=== PATIENT | male | born 1990 | race Hispanic/Latino ===

== ENCOUNTER 2017-02-09 10:33 | Emergency (ER) | payer SELFPAY ==
[~2017-02-09] VITALS: Ht 160 cm; Wt 72.0 kg
[~2017-02-09 10:33] MED LIST: HYDROCO/APAP1 TA9 PO; ZOFRAN ODT4 MG PO
[2017-02-09 11:11] LABS: HEMATOCRIT 42.1 % (39.0-50.0); HEMOGLOBIN 14.8 g/dl (14.0-18.0); IMMATURE GRANULOCYTES 0.5 % (0.0-1.0); MEAN CELL VOLUME 80.2 fL CALC (80.0-100.0); MEAN CORPUSCULAR HGB 28.2 pG CALC (26.0-32.0); MEAN CORPUSCULAR HGB CONC 35.2 g/L CALC (32.0-36.0); NEUT# 9.3 thou/uL (1.82-7.42); RED BLOOD COUNT 5.25 mill/uL (4.70-6.10); RED CELL DISTRI WIDTH 13.9 % (11.5-15.5)
[2017-02-09 11:26] LABS: ALBUMIN 4.9 g/dL (3.2-5.0); ALKALINE PHOSPHATASE 125 u/l (38-126); AMYLASE 75 u/l (30-110); ANION GAP 21 (6-22 (CALC)); BILIRUBIN, TOTAL 0.8 mg/dL (0.0-1.4); BUN 9 mg/dL (9-20); BUN/CREATININE RATIO 14 (12-20 (CALC)); CALCIUM 9.3 mg/dL (8.4-10.2); CARBON DIOXIDE 20 mmol/l (22-30); CHLORIDE 98 mmol/l (95-108); CPK 444 u/l (52-200); CREATININE 0.7 mg/dL (0.7-1.3); ETHYL ALCOHOL 0 mg/dl (0-30); GFR > 60 ML/MIN (>=60 (CALC)); GFR FOR AFR.AMER. > 60 ML/MIN (>=60 (CALC)); GLUCOSE 136 mg/dL (75-110); LIPASE 36 u/l (23-300); POTASSIUM 3.5 mmol/l (3.5-5.1); SGOT/AST 59 u/l (17-59); SGPT/ALT 63 u/l (21-72); SODIUM 136 mmol/l (137-146); TOTAL PROTEIN 8.3 g/dL (6.3-8.2)
[2017-02-09 12:37] LABS: MYOGLOBIN 64 ng/mL (0 - 121)
[2017-02-09] MEDS ORDERED: LIBRIUM25 MG PO (15:21)
[2017-02-09] MEDS ORDERED: NEXIUM40 M1 PO (15:21)
[2017-02-09] MEDS ORDERED: ZOFRAN ODT4 MG PO (15:21)
[2017-02-09] MEDS ORDERED: TRAMADOL HYDROC50 MG PO (16:02)
[2017-02-09 16:10] LABS: URINE BILIRUBIN - DIPSTICK NEGATIVE (NEGATIVE); URINE BLOOD DIPSTICK NEGATIVE (NEGATIVE); URINE CLARITY CLEAR; URINE COLOR YELLOW; URINE GLUCOSE - DIPSTICK NEGATIVE (NEGATIVE); URINE KETONE 15 mg/dL (NEGATIVE); URINE LEUK ESTERASE NEGATIVE (NEGATIVE); URINE NITRITE - DIPSTICK NEGATIVE (Negative); URINE PROTEIN - DIPSTICK NEGATIVE (NEG-TRACE); URINE SPECIFIC GRAVITY <=1.005; URINE UROBILINOGEN - DIPSTICK 0.2 E.U./dL (0.2)
[2017-02-09 16:27] VITALS: BP 132/55
== END 2017-02-09 16:55 | disposition home or self-care (01) | DRG 918 ==
LOC: ED 10:33
PROVIDERS: Emergency Medicine
DX: T51.2X1A Toxic effect of 2-Propanol, accidental (unintentional), initial encounter (principal); R11.2 Nausea with vomiting, unspecified; R10.9 Unspecified abdominal pain; Y92.009 Unspecified place in unspecified non-institutional (private) residence as the place of occurrence of the external cause
CPT/HCPCS: J2060; S0164

== ENCOUNTER 2017-03-11 04:58 | Observation (INO) | payer SELFPAY ==
[~2017-03-11] VITALS: Ht 160 cm; Wt 63.0 kg
[2017-03-11] VITALS (7 sets, daily range): BP systolic 124–147; BP diastolic 70–91
[~2017-03-11 04:58] MED LIST changes: +LIBRIUM25 MG PO; +NEXIUM40 M1 PO; +TRAMADOL HYDROC50 MG PO
[2017-03-11 06:27] LABS: HEMATOCRIT 50.1 % (39.0-50.0); IMMATURE GRANULOCYTES 0.3 % (0.0-1.0); MEAN CELL VOLUME 82.3 fL CALC (80.0-100.0); MEAN CORPUSCULAR HGB 27.9 pG CALC (26.0-32.0); MEAN CORPUSCULAR HGB CONC 33.9 g/L CALC (32.0-36.0); NEUT# 4.04 thou/uL (1.82-7.42); RED BLOOD COUNT 6.09 mill/uL (4.70-6.10); RED CELL DISTRI WIDTH 13.2 % (11.5-15.5)
[2017-03-11 06:39] LABS: ALBUMIN 5.2 g/dL (3.2-5.0); ALKALINE PHOSPHATASE 121 u/l (38-126); AMYLASE 75 u/l (30-110); ANION GAP 27 (6-22 (CALC)); BILIRUBIN, TOTAL 0.8 mg/dL (0.0-1.4); BUN 16 mg/dL (9-20); BUN/CREATININE RATIO 16 (12-20 (CALC)); CALCIUM 9.3 mg/dL (8.4-10.2); CARBON DIOXIDE 22 mmol/l (22-30); CHLORIDE 101 mmol/l (95-108); GFR > 60 ML/MIN (>=60 (CALC)); GFR FOR AFR.AMER. > 60 ML/MIN (>=60 (CALC)); GLUCOSE 124 mg/dL (75-110); LIPASE 114 u/l (23-300); POTASSIUM 3.8 mmol/l (3.5-5.1); SGOT/AST 79 u/l (17-59); SGPT/ALT 61 u/l (21-72); SODIUM 146 mmol/l (137-146); TOTAL PROTEIN 8.9 g/dL (6.3-8.2)
[2017-03-11 10:30] LABS: URINE BILIRUBIN - DIPSTICK NEGATIVE (NEGATIVE); URINE BLOOD DIPSTICK TRACE-INTACT (NEGATIVE); URINE CLARITY CLEAR; URINE COLOR YELLOW; URINE GLUCOSE - DIPSTICK NEGATIVE (NEGATIVE); URINE KETONE NEGATIVE (NEGATIVE); URINE LEUK ESTERASE NEGATIVE (NEGATIVE); URINE NITRITE - DIPSTICK NEGATIVE (Negative); URINE PROTEIN - DIPSTICK NEGATIVE (NEG-TRACE); URINE SPECIFIC GRAVITY >=1.030; URINE UROBILINOGEN - DIPSTICK 0.2 E.U./dL (0.2)
[2017-03-11 10:34] LABS: BARBITURATES NEGATIVE (NEGATIVE); COCAINE POSITIVE (NEGATIVE); METHADONE NEGATIVE (NEGATIVE); OXCYCODONE NEGATIVE (NEGATIVE); TETRAHYDROCANNABIONOL NEGATIVE (NEGATIVE); TRICYLIC ANTIDEPRESSANTS NEGATIVE (NEGATIVE)
[2017-03-12 00:01] VITALS: BP 132/84
[2017-03-12 04:05] VITALS: BP 137/95
[2017-03-12 04:24] LABS: IMMATURE GRANULOCYTES 0.1 % (0.0-1.0); MEAN CELL VOLUME 84.2 fL CALC (80.0-100.0); MEAN CORPUSCULAR HGB 28.1 pG CALC (26.0-32.0); MEAN CORPUSCULAR HGB CONC 33.3 g/L CALC (32.0-36.0); NEUT# 3.76 thou/uL (1.82-7.42); RED BLOOD COUNT 4.63 mill/uL (4.70-6.10); RED CELL DISTRI WIDTH 13.1 % (11.5-15.5)
[2017-03-12 04:40] LABS: BUN 7 mg/dL (9-20); BUN/CREATININE RATIO 11 (12-20 (CALC)); CALCIUM 8.7 mg/dL (8.4-10.2); CARBON DIOXIDE 28 mmol/l (22-30); CHLORIDE 101 mmol/l (95-108); CREATININE 0.6 mg/dL (0.7-1.3); GFR > 60 ML/MIN (>=60 (CALC)); GFR FOR AFR.AMER. > 60 ML/MIN (>=60 (CALC)); GLUCOSE 92 mg/dL (75-110); POTASSIUM 3.7 mmol/l (3.5-5.1)
[2017-03-12 04:47] LABS: ANION GAP 11 (6-22 (CALC))
[2017-03-12 04:48] LABS: SODIUM 136 mmol/l (137-146)
[2017-03-12 06:05] VITALS: BP 128/74
[2017-03-12] MEDS ORDERED: PROTONIX40 MG PO (09:38)
[2017-03-12] MEDS ORDERED: ZOFRAN4 MG/TAB PO (09:38)
[2017-03-12] MEDS ORDERED: LIBRIUM25 M1 PO (09:38)
== END 2017-03-12 11:05 | disposition home or self-care (01) | DRG 378 ==
LOC: ED 04:58 → ED-I 05:35 → ED 05:35 → ED-I 06:30 → ED 10:47 → ED-I 10:47 → ICU 11:44
PROVIDERS: Emergency Medicine; Nurse Practitioner Family; ADMIT Internal Medicine; ATTEND Internal Medicine
DX: K29.21 Alcoholic gastritis with bleeding (principal); E87.2 Acidosis; F10.229 Alcohol dependence with intoxication, unspecified; Y90.7 Blood alcohol level of 200-239 mg/100 ml; F14.10 Cocaine abuse, uncomplicated
CPT/HCPCS: J2060; S0164

== ENCOUNTER 2017-05-15 09:06 | Observation (INO) | payer SELFPAY ==
[~2017-05-15] VITALS: Ht 160 cm; Wt 65.6 kg
[~2017-05-15 09:06] MED LIST changes: +LIBRIUM25 M1 PO; +PROTONIX40 MG PO; +ZOFRAN4 MG/TAB PO
[2017-05-15 10:32] LABS: HEMATOCRIT 46.8 % (39.0-50.0); HEMOGLOBIN 16.1 g/dl (14.0-18.0); IMMATURE GRANULOCYTES 0.6 % (0.0-1.0); MEAN CELL VOLUME 81.4 fL CALC (80.0-100.0); MEAN CORPUSCULAR HGB CONC 34.4 g/L CALC (32.0-36.0); NEUT# 2.42 thou/uL (1.82-7.42); RED BLOOD COUNT 5.75 mill/uL (4.70-6.10)
[2017-05-15 10:46] LABS: ALBUMIN 5.1 g/dL (3.2-5.0); ALKALINE PHOSPHATASE 118 u/l (38-126); ANION GAP 25 (6-22 (CALC)); BILIRUBIN, TOTAL 0.5 mg/dL (0.0-1.4); BUN 16 mg/dL (9-20); BUN/CREATININE RATIO 20 (12-20 (CALC)); CALCIUM 9.5 mg/dL (8.4-10.2); CARBON DIOXIDE 21 mmol/l (22-30); CHLORIDE 106 mmol/l (95-108); CREATININE 0.8 mg/dL (0.7-1.3); GFR > 60 ML/MIN (>=60 (CALC)); GFR FOR AFR.AMER. > 60 ML/MIN (>=60 (CALC)); GLUCOSE 100 mg/dL (75-110); LIPASE 24 u/l (23-300); POTASSIUM 4.1 mmol/l (3.5-5.1); SGOT/AST 37 u/l (17-59); SGPT/ALT 49 u/l (21-72); SODIUM 147 mmol/l (137-146); TOTAL PROTEIN 8.5 g/dL (6.3-8.2)
[2017-05-15 13:10] LABS: URINE BILIRUBIN - DIPSTICK NEGATIVE (NEGATIVE); URINE BLOOD DIPSTICK NEGATIVE (NEGATIVE); URINE CLARITY CLEAR; URINE COLOR YELLOW; URINE GLUCOSE - DIPSTICK NEGATIVE (NEGATIVE); URINE KETONE TRACE mg/dL (NEGATIVE); URINE LEUK ESTERASE NEGATIVE (NEGATIVE); URINE NITRITE - DIPSTICK NEGATIVE (Negative); URINE PROTEIN - DIPSTICK NEGATIVE (NEG-TRACE); URINE SPECIFIC GRAVITY 1.025; URINE UROBILINOGEN - DIPSTICK 0.2 E.U./dL (0.2)
[2017-05-15 13:28] LABS: BARBITURATES NEGATIVE (NEGATIVE); COCAINE NEGATIVE (NEGATIVE); METHADONE NEGATIVE (NEGATIVE); OXCYCODONE NEGATIVE (NEGATIVE); TETRAHYDROCANNABIONOL NEGATIVE (NEGATIVE); TRICYLIC ANTIDEPRESSANTS NEGATIVE (NEGATIVE)
[2017-05-15 17:36] VITALS: BP 141/91
[2017-05-15 18:05] VITALS: BP 130/81
[2017-05-16 04:46] VITALS: BP 127/72
[2017-05-16 07:45] VITALS: BP 126/69
[2017-05-16 10:53] LABS: ANION GAP 18 (6-22 (CALC)); BUN 13 mg/dL (9-20); BUN/CREATININE RATIO 17 (12-20 (CALC)); CALCIUM 9.2 mg/dL (8.4-10.2); CARBON DIOXIDE 22 mmol/l (22-30); CHLORIDE 103 mmol/l (95-108); CREATININE 0.8 mg/dL (0.7-1.3); GFR > 60 ML/MIN (>=60 (CALC)); GFR FOR AFR.AMER. > 60 ML/MIN (>=60 (CALC)); GLUCOSE 69 mg/dL (75-110); MAGNESIUM 1.8 mg/dL (1.6-2.3); POTASSIUM 4.3 mmol/l (3.5-5.1); SODIUM 138 mmol/l (137-146)
[2017-05-16] MEDS ORDERED: CARAFATE1 GM PO (11:18)
[2017-05-16] MEDS ORDERED: LIBRIUM25 M1 PO (11:18)
[2017-05-16] MEDS ORDERED: PROTONIX40 M2 PO (11:18)
== END 2017-05-16 13:30 | disposition home or self-care (01) | DRG 392 ==
LOC: ED 09:06 → ED-I 15:54 → ED 16:08 → MS2 16:09
PROVIDERS: Emergency Medicine; Nurse Practitioner Family; ADMIT Internal Medicine; ATTEND Internal Medicine
DX: K29.20 Alcoholic gastritis without bleeding (principal); F10.229 Alcohol dependence with intoxication, unspecified; F10.20 Alcohol dependence, uncomplicated; Y90.7 Blood alcohol level of 200-239 mg/100 ml
CPT/HCPCS: G0378; S0164

== ENCOUNTER 2017-05-30 08:17 | Emergency (ER) | payer SELFPAY ==
[~2017-05-30] VITALS: Ht 160 cm; Wt 65.0 kg
[~2017-05-30 08:17] MED LIST changes: +CARAFATE1 GM PO; +PROTONIX40 M2 PO
[2017-05-30 08:56] LABS: HEMATOCRIT 44.5 % (39.0-50.0); HEMOGLOBIN 15.3 g/dl (14.0-18.0); IMMATURE GRANULOCYTES 0.5 % (0.0-1.0); MEAN CELL VOLUME 82.1 fL CALC (80.0-100.0); MEAN CORPUSCULAR HGB 28.2 pG CALC (26.0-32.0); MEAN CORPUSCULAR HGB CONC 34.4 g/L CALC (32.0-36.0); NEUT# 3.24 thou/uL (1.82-7.42); RED BLOOD COUNT 5.42 mill/uL (4.70-6.10); RED CELL DISTRI WIDTH 13.2 % (11.5-15.5)
[2017-05-30 09:00] LABS: ALKALINE PHOSPHATASE 112 u/l (38-126); ANION GAP 21 (6-22 (CALC)); BILIRUBIN, TOTAL 0.9 mg/dL (0.0-1.4); BUN 12 mg/dL (9-20); BUN/CREATININE RATIO 15 (12-20 (CALC)); CALCIUM 9.4 mg/dL (8.4-10.2); CARBON DIOXIDE 27 mmol/l (22-30); CHLORIDE 102 mmol/l (95-108); CREATININE 0.8 mg/dL (0.7-1.3); ETHYL ALCOHOL 173 mg/dl (0-30); GFR > 60 ML/MIN (>=60 (CALC)); GFR FOR AFR.AMER. > 60 ML/MIN (>=60 (CALC)); GLUCOSE 123 mg/dL (75-110); LIPASE 88 u/l (23-300); POTASSIUM 4.4 mmol/l (3.5-5.1); SGOT/AST 65 u/l (17-59); SGPT/ALT 66 u/l (21-72); SODIUM 144 mmol/l (137-146); TOTAL PROTEIN 8.1 g/dL (6.3-8.2)
[2017-05-30 11:28] LABS: URINE BILIRUBIN - DIPSTICK NEGATIVE (NEGATIVE); URINE BLOOD DIPSTICK NEGATIVE (NEGATIVE); URINE COLOR YELLOW; URINE GLUCOSE - DIPSTICK NEGATIVE (NEGATIVE); URINE KETONE NEGATIVE (NEGATIVE); URINE LEUK ESTERASE NEGATIVE (NEGATIVE); URINE NITRITE - DIPSTICK NEGATIVE (Negative); URINE PH 7.5 (4.5-8.0); URINE PROTEIN - DIPSTICK NEGATIVE (NEG-TRACE); URINE SPECIFIC GRAVITY 1.015; URINE UROBILINOGEN - DIPSTICK 0.2 E.U./dL (0.2)
[2017-05-30 11:31] LABS: URINE CLARITY CLEAR
[2017-05-30 11:32] LABS: BARBITURATES NEGATIVE (NEGATIVE); COCAINE NEGATIVE (NEGATIVE); METHADONE NEGATIVE (NEGATIVE); OXCYCODONE NEGATIVE (NEGATIVE); TETRAHYDROCANNABIONOL NEGATIVE (NEGATIVE); TRICYLIC ANTIDEPRESSANTS NEGATIVE (NEGATIVE)
[2017-05-30 16:40] VITALS: BP 141/67
== END 2017-05-30 16:40 | disposition short-term general hospital (02) | DRG 392 ==
LOC: ED 08:17 → ED-I 15:39 → ED 16:40
PROVIDERS: Emergency Medicine
DX: R10.13 Epigastric pain (principal); E87.2 Acidosis; R10.12 Left upper quadrant pain; K29.70 Gastritis, unspecified, without bleeding; F10.20 Alcohol dependence, uncomplicated; Y90.6 Blood alcohol level of 120-199 mg/100 ml; R11.2 Nausea with vomiting, unspecified
CPT/HCPCS: G0328; S0164

== ENCOUNTER 2017-08-03 10:06 | Emergency (ER) | payer SELFPAY ==
[~2017-08-03] VITALS: Ht 160 cm; Wt 63.0 kg
[2017-08-03] MEDS ORDERED: NEXIUM40 M1 PO (10:41)
[2017-08-03] MEDS ORDERED: ZOFRAN ODT4 MG PO (10:41)
[2017-08-03] MEDS ORDERED: LIBRIUM25 MG PO (10:41)
[2017-08-03 10:57] LABS: HEMATOCRIT 45.2 % (39.0-50.0); HEMOGLOBIN 15.2 g/dl (14.0-18.0); IMMATURE GRANULOCYTES 0.4 % (0.0-1.0); MEAN CELL VOLUME 80.6 fL CALC (80.0-100.0); MEAN CORPUSCULAR HGB 27.1 pG CALC (26.0-32.0); MEAN CORPUSCULAR HGB CONC 33.6 g/L CALC (32.0-36.0); NEUT# 2.23 thou/uL (1.82-7.42); RED BLOOD COUNT 5.61 mill/uL (4.70-6.10); RED CELL DISTRI WIDTH 12.6 % (11.5-15.5)
[2017-08-03 11:08] LABS: ALKALINE PHOSPHATASE 116 u/l (38-126); AMYLASE 39 u/l (30-110); ANION GAP 25 (6-22 (CALC)); BILIRUBIN, TOTAL 0.6 mg/dL (0.0-1.4); BUN 16 mg/dL (9-20); BUN/CREATININE RATIO 19 (12-20 (CALC)); CALCIUM 9.9 mg/dL (8.4-10.2); CARBON DIOXIDE 27 mmol/l (22-30); CHLORIDE 97 mmol/l (95-108); CREATININE 0.8 mg/dL (0.7-1.3); GFR > 60 ML/MIN (>=60 (CALC)); GFR FOR AFR.AMER. > 60 ML/MIN (>=60 (CALC)); GLUCOSE 123 mg/dL (75-110); LIPASE 17 u/l (23-300); POTASSIUM 3.7 mmol/l (3.5-5.1); SGOT/AST 47 u/l (17-59); SGPT/ALT 52 u/l (21-72); SODIUM 145 mmol/l (137-146); TOTAL PROTEIN 7.8 g/dL (6.3-8.2)
[2017-08-03 12:29] VITALS: BP 124/75
== END 2017-08-03 12:48 | disposition home or self-care (01) | DRG 392 ==
LOC: ED 10:06
PROVIDERS: Emergency Medicine
DX: K29.20 Alcoholic gastritis without bleeding (principal); R10.12 Left upper quadrant pain; R11.10 Vomiting, unspecified; R19.7 Diarrhea, unspecified
CPT/HCPCS: S0164

== ENCOUNTER 2017-08-29 16:53 | Emergency (ER) | payer SELFPAY ==
[~2017-08-29] VITALS: Ht 160 cm; Wt 70.0 kg
[2017-08-29 18:07] LABS: HEMATOCRIT 44.9 % (39.0-50.0); HEMOGLOBIN 14.9 g/dl (14.0-18.0); IMMATURE GRANULOCYTES 0.1 % (0.0-1.0); MEAN CELL VOLUME 80.9 fL CALC (80.0-100.0); MEAN CORPUSCULAR HGB 26.8 pG CALC (26.0-32.0); MEAN CORPUSCULAR HGB CONC 33.2 g/L CALC (32.0-36.0); NEUT# 4.73 thou/uL (1.82-7.42); RED BLOOD COUNT 5.55 mill/uL (4.70-6.10); RED CELL DISTRI WIDTH 13.2 % (11.5-15.5)
[2017-08-29 18:11] LABS: ALBUMIN 4.7 g/dL (3.2-5.0); ALKALINE PHOSPHATASE 118 u/l (38-126); ANION GAP 26 (6-22 (CALC)); BILIRUBIN, TOTAL 0.5 mg/dL (0.0-1.4); BUN 13 mg/dL (9-20); BUN/CREATININE RATIO 18 (12-20 (CALC)); CARBON DIOXIDE 20 mmol/l (22-30); CHLORIDE 97 mmol/l (95-108); CREATININE 0.7 mg/dL (0.7-1.3); GFR > 60 ML/MIN (>=60 (CALC)); GFR FOR AFR.AMER. > 60 ML/MIN (>=60 (CALC)); LIPASE 21 u/l (23-300); POTASSIUM 4.1 mmol/l (3.5-5.1); SGOT/AST 43 u/l (17-59); SGPT/ALT 38 u/l (21-72); SODIUM 139 mmol/l (137-146); TOTAL PROTEIN 7.5 g/dL (6.3-8.2)
[2017-08-29 19:16] LABS: URINE BILIRUBIN - DIPSTICK NEGATIVE (NEGATIVE); URINE BLOOD DIPSTICK NEGATIVE (NEGATIVE); URINE COLOR YELLOW; URINE GLUCOSE - DIPSTICK NEGATIVE (NEGATIVE); URINE KETONE NEGATIVE (NEGATIVE); URINE LEUK ESTERASE NEGATIVE (NEGATIVE); URINE NITRITE - DIPSTICK NEGATIVE (Negative); URINE PROTEIN - DIPSTICK TRACE mg/dL (NEG-TRACE); URINE SPECIFIC GRAVITY >=1.030; URINE UROBILINOGEN - DIPSTICK 0.2 E.U./dL (0.2)
[2017-08-29 19:22] LABS: URINE CLARITY CLEAR
[2017-08-29 19:23] LABS: BARBITURATES NEGATIVE (NEGATIVE); COCAINE NEGATIVE (NEGATIVE); METHADONE NEGATIVE (NEGATIVE); OXCYCODONE NEGATIVE (NEGATIVE); TETRAHYDROCANNABIONOL NEGATIVE (NEGATIVE); TRICYLIC ANTIDEPRESSANTS NEGATIVE (NEGATIVE)
[2017-08-29] MEDS ORDERED: PROTONIX40 MG PO (20:12)
[2017-08-29] MEDS ORDERED: AUGMENTIN875TAB PO (20:39)
[2017-08-29] MEDS ORDERED: ZOFRAN4 M1 PO (20:39)
[2017-08-29 21:17] VITALS: BP 125/76
== END 2017-08-29 21:25 | disposition home or self-care (01) | DRG 392 ==
LOC: ED 16:53
PROVIDERS: Emergency Medicine
DX: R10.32 Left lower quadrant pain (principal); F10.10 Alcohol abuse, uncomplicated
CPT/HCPCS: J2060; Q9967; S0164

== ENCOUNTER 2017-08-30 05:25 | Emergency (ER) | payer SELFPAY ==
[~2017-08-30] VITALS: Ht 160 cm; Wt 68.6 kg
[~2017-08-30 05:25] MED LIST changes: +AUGMENTIN875TAB PO; +ZOFRAN4 M1 PO
[2017-08-30 07:47] LABS: HEMATOCRIT 39.3 % (39.0-50.0); HEMOGLOBIN 13.3 g/dl (14.0-18.0); IMMATURE GRANULOCYTES 0.2 % (0.0-1.0); MEAN CELL VOLUME 80.9 fL CALC (80.0-100.0); MEAN CORPUSCULAR HGB 27.4 pG CALC (26.0-32.0); MEAN CORPUSCULAR HGB CONC 33.8 g/L CALC (32.0-36.0); NEUT# 2.4 thou/uL (1.82-7.42); RED BLOOD COUNT 4.86 mill/uL (4.70-6.10); RED CELL DISTRI WIDTH 13.3 % (11.5-15.5)
[2017-08-30 08:01] LABS: ALBUMIN 4.1 g/dL (3.2-5.0); ALKALINE PHOSPHATASE 119 u/l (38-126); ANION GAP 16 (6-22 (CALC)); BILIRUBIN, TOTAL 1.4 mg/dL (0.0-1.4); BUN 9 mg/dL (9-20); BUN/CREATININE RATIO 14 (12-20 (CALC)); CALCIUM 9.4 mg/dL (8.4-10.2); CARBON DIOXIDE 22 mmol/l (22-30); CHLORIDE 103 mmol/l (95-108); CREATININE 0.7 mg/dL (0.7-1.3); GFR > 60 ML/MIN (>=60 (CALC)); GFR FOR AFR.AMER. > 60 ML/MIN (>=60 (CALC)); GLUCOSE 98 mg/dL (75-110); LIPASE 25 u/l (23-300); POTASSIUM 3.8 mmol/l (3.5-5.1); SGOT/AST 61 u/l (17-59); SGPT/ALT 43 u/l (21-72); SODIUM 137 mmol/l (137-146); TOTAL PROTEIN 6.8 g/dL (6.3-8.2)
[2017-08-30 09:00] VITALS: BP 135/87
== END 2017-08-30 09:56 | disposition home or self-care (01) | DRG 392 ==
LOC: ED 05:25
PROVIDERS: Family Medicine
DX: R10.84 Generalized abdominal pain (principal); F10.10 Alcohol abuse, uncomplicated
CPT/HCPCS: J2060

== ENCOUNTER 2017-11-04 16:52 | Inpatient (IN) | payer SELFPAY ==
[~2017-11-04] VITALS: Ht 165.1 cm; Wt 63.6 kg
[2017-11-04 18:44] LABS: HEMOGLOBIN 14.5 g/dl (14.0-18.0); IMMATURE GRANULOCYTES 0.5 % (0.0-1.0); MEAN CELL VOLUME 81.9 fL CALC (80.0-100.0); MEAN CORPUSCULAR HGB 27.6 pG CALC (26.0-32.0); MEAN CORPUSCULAR HGB CONC 33.7 g/L CALC (32.0-36.0); NEUT# 6.43 thou/uL (1.82-7.42); RED BLOOD COUNT 5.25 mill/uL (4.70-6.10); RED CELL DISTRI WIDTH 13.7 % (11.5-15.5)
[2017-11-04 18:54] LABS: ALKALINE PHOSPHATASE 144 u/l (38-126); AMYLASE 71 u/l (30-110); ANION GAP 28 (6-22 (CALC)); BILIRUBIN, TOTAL 1.2 mg/dL (0.0-1.4); BUN 19 mg/dL (9-20); BUN/CREATININE RATIO 26 (12-20 (CALC)); CARBON DIOXIDE 23 mmol/l (22-30); CHLORIDE 91 mmol/l (95-108); CREATININE 0.7 mg/dL (0.7-1.3); GFR > 60 ML/MIN (>=60 (CALC)); GFR FOR AFR.AMER. > 60 ML/MIN (>=60 (CALC)); LIPASE 37 u/l (23-300); POTASSIUM 4.3 mmol/l (3.5-5.1); SGPT/ALT 80 u/l (21-72); SODIUM 138 mmol/l (137-146)
[2017-11-04 19:01] LABS: SGOT/AST 108 u/l (17-59); TOTAL PROTEIN 8.7 g/dL (6.3-8.2)
[2017-11-04 20:26] LABS: URINE BLOOD DIPSTICK NEGATIVE (NEGATIVE); URINE COLOR YELLOW; URINE GLUCOSE - DIPSTICK NEGATIVE (NEGATIVE); URINE KETONE >=80 mg/dL (NEGATIVE); URINE LEUK ESTERASE NEGATIVE (NEGATIVE); URINE NITRITE - DIPSTICK NEGATIVE (Negative); URINE PROTEIN - DIPSTICK 30 mg/dL (NEG-TRACE); URINE SPECIFIC GRAVITY 1.015
[2017-11-04 20:28] LABS: COCAINE NEGATIVE (NEGATIVE); METHADONE NEGATIVE (NEGATIVE); TETRAHYDROCANNABIONOL NEGATIVE (NEGATIVE)
[2017-11-04 20:29] LABS: BARBITURATES NEGATIVE (NEGATIVE); OXCYCODONE NEGATIVE (NEGATIVE); TRICYLIC ANTIDEPRESSANTS NEGATIVE (NEGATIVE)
[2017-11-04 20:31] LABS: URINE BILIRUBIN - DIPSTICK NEGATIVE (NEGATIVE); URINE CLARITY CLEAR
[2017-11-04 20:42] LABS: URINE RBC 0-2 RBC/hpf (0-5); URINE WBC 0-2 WBC/hpf (0-5)
[2017-11-05] VITALS (11 sets, daily range): BP systolic 128–141; BP diastolic 78–93
== END 2017-11-05 12:30 | disposition designated cancer center or children's hospital (05) | DRG 897 ==
LOC: ED 16:52 → ED-I 23:00 → ED 23:18 → ICU 23:19
PROVIDERS: Emergency Medicine; ADMIT Internal Medicine; ATTEND Internal Medicine
DX: F10.251 Alcohol dependence with alcohol-induced psychotic disorder with hallucinations (principal); K70.10 Alcoholic hepatitis without ascites; K29.20 Alcoholic gastritis without bleeding
CPT/HCPCS: J2060; Q9967; S0164

== ENCOUNTER 2017-12-01 16:17 | Inpatient (IN) | payer SELFPAY ==
[~2017-12-01] VITALS: Ht 165.1 cm; Wt 65.0 kg
--- NOTE | 2017-12-01 16:17 | NUR ---
PT TAKEN TO ER ROOM 10 BY EMS. LABS DRAWN FROM EMS IV. ON CARDIAC/BP/O2 MONITOR. EKG COMPLETED. @BEDSIDE. PT CHANGED INTO GOWN. GIVEN URINAL FOR UA SAMPLE.
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
[2017-12-01 16:34] LABS: HEMATOCRIT 41.6 % (39.0-50.0); HEMOGLOBIN 13.9 g/dl (14.0-18.0); IMMATURE GRANULOCYTES 0.4 % (0.0-1.0); MEAN CELL VOLUME 82.4 fL CALC (80.0-100.0); MEAN CORPUSCULAR HGB 27.5 pG CALC (26.0-32.0); MEAN CORPUSCULAR HGB CONC 33.4 g/L CALC (32.0-36.0); NEUT# 3.3 thou/uL (1.82-7.42); RED BLOOD COUNT 5.05 mill/uL (4.70-6.10)
[2017-12-01 16:45] LABS: BARBITURATES NEGATIVE (NEGATIVE); COCAINE NEGATIVE (NEGATIVE); METHADONE NEGATIVE (NEGATIVE); OXCYCODONE NEGATIVE (NEGATIVE); TETRAHYDROCANNABIONOL NEGATIVE (NEGATIVE); TRICYLIC ANTIDEPRESSANTS NEGATIVE (NEGATIVE)
--- NOTE | 2017-12-01 16:52 | NUR ---
BLOOD HEMOLIZED. LAB HERE TO COLLECT ANOTHER SAMPLE .
[2017-12-01 17:14] LABS: ALBUMIN 4.3 g/dL (3.2-5.0); ALKALINE PHOSPHATASE 115 u/l (38-126); ANION GAP 21 (6-22 (CALC)); BILIRUBIN, TOTAL 0.5 mg/dL (0.0-1.4); BUN 14 mg/dL (9-20); BUN/CREATININE RATIO 24 (12-20 (CALC)); CARBON DIOXIDE 23 mmol/l (22-30); CREATININE 0.6 mg/dL (0.7-1.3); GFR > 60 ML/MIN (>=60 (CALC)); GFR FOR AFR.AMER. > 60 ML/MIN (>=60 (CALC)); LIPASE 771 u/l (23-300); MAGNESIUM 1.9 mg/dL (1.6-2.3); POTASSIUM 3.5 mmol/l (3.5-5.1); SGOT/AST 93 u/l (17-59); SGPT/ALT 69 u/l (21-72); SODIUM 143 mmol/l (137-146); TOTAL PROTEIN 7.5 g/dL (6.3-8.2)
[2017-12-01 17:15] LABS: CHLORIDE 103 mmol/l (95-108)
[2017-12-01] MEDS ORDERED: TYLENOL325 MG PO (17:36)
[2017-12-01] MEDS ORDERED: ZOFRAN ODT4 MG PO (17:36)
--- NOTE | 2017-12-01 17:52 | NUR ---
PT LAYING IN BED. NO COMPLAINTS. NO NEEDS. WILL CONTINUE TO MONITOR
--- NOTE | 2017-12-01 18:12 | NUR ---
RECVING VALENTINA WCB
--- NOTE | 2017-12-01 18:28 | NUR ---
Admission Note Report Given to: jose Transported by: Wheelchair x Stretcher Transported with: x Nurse Transporter x Patent IV O2 x Heel Cover Softener
--- NOTE | 2017-12-01 18:40 | NUR ---
PT TRANSFERED TO [facility] BY STRETCHER IN STABLE CONDITION WITH TELE.
[2017-12-01 18:45] VITALS: BP 125/85
--- NOTE | 2017-12-01 19:55 | NUR ---
PT WAS RECEIVED FROM E.R PRIOR TO START OF THIS SHIFT. REPORT RECEIVED FROM DAYSNEFT NURSE. PT RESTING IN BED. RESP EVEN AND UNLABORED. PT DOES SPEAL SOME PORTUGUESE AND ANSWERS QUESTIONS APPROPRAITELY. ALERT AND ORIENTED. LUNGS CLEAR BILAT. IV SITE PATENT NO REDNESS OR SWELLING AT SITE. IVF BANANA BAG INFUSING AT 125CC/HR. ABD SOFT AND DISTENDED WITH BOWEL SOUNDS PRESENT. PT DOES HAVE TENDERNESS NOTED ON UPPER LEFT QUAD ON PALPATION. NO LOWER EXT EDEMA NOTED. PEDAL PULSES PALPATED BILAT. PT ORIENTED TO ROOM AND CALL BLANCAS. URINAL AT BESIDE FOR PT TO USE. PT INSTRUCTED NOT TO ATTEMPT TO GET OOB ON HIS OWN AND TO RING FOR ASSISTANCE. PT STATES HE UNDERSTANDS. TELE INTACT READING ST. PT IS AFEBRILE. B/P 133/88. O2 SAT 97% ON R/A. NO S/S OF ETOH WITHDRAWL NOTED AT THIS TIME. PT IS CALM, PLEASANT AND COOPERATIVE. WILL CONTINUE TO CLOSELY MONITOR. RT HAND IS SLIGHTLY EDEMATOUS AND ELEVATED ON A PILLOW. STRONG RADIAL PULSE PALPATED WITH GOOD CAPILLARY REFILL. PT DENIES ANY DISCOMFORT AT THIS TIME. CALL BLANCAS WITHIN REACH.
--- NOTE | 2017-12-01 20:59 | NUR ---
PT AWAKE RESTING IN BED. PT IS REQUESTING PAIN MED FOR ABD DISCOMFORT. PT DENIES ANY NAUSEA. MEDICATED WITH LORTAB 5/325MG ONE TAB P.O AND LIBRIUM 25MG P.O TO CONTINUE TO KEEP PT CALM. NO S/S OF ETOH WITHDRAWL NOTED. FREQUENT ROUNDS MADE. CALL BLANCAS WITHIN REACH.
[2017-12-02 00:10] VITALS: BP 123/79
--- NOTE | 2017-12-02 00:10 | NUR ---
PT RESTING IN BED WITH EYES CLOSED. RESP EVEN AND UNLABORED. NO DISTRESS NOTED. IV SITE PATENT. TELE INTACT. WILL CONTINUE TO CLOSELY MONITOR. FREQUENT ROUNDS MADE. CALL BLANCAS WITHIN REACH.
--- NOTE | 2017-12-02 02:30 | NUR ---
RESTING IN BED WITH EYES CLOSED. RESP EVEN AND UNLABORED. FREQUENT ROUNDS MADE.CALL BLANCAS WITHIN REACH.
[2017-12-02 04:10] VITALS: BP 129/82
--- NOTE | 2017-12-02 04:12 | NUR ---
PT AWAKE REQUESTING PAIN MEDICINE FOR ABD DISCOMFORT. PT DENIES ANY NAUSEA. NO S/S OF WITHDRAWL NOTED. ALERT AND ORIENTED. PLEASANT AND COOPERATIVE. MEDICATED WITH LOTAB 5/325MG ONE TAB P.O FOR ABD DISCOMFORT AND LIBRIUM 25MG P.O . HEPL[place] PATENT. TELE INTACT. FREQUENT ROUNDS MADE. CALL BLANCAS WITHIN REACH.
[2017-12-02 05:36] LABS: HEMATOCRIT 39.6 % (39.0-50.0); HEMOGLOBIN 13.2 g/dl (14.0-18.0); IMMATURE GRANULOCYTES 0.3 % (0.0-1.0); MEAN CELL VOLUME 83.4 fL CALC (80.0-100.0); MEAN CORPUSCULAR HGB 27.8 pG CALC (26.0-32.0); MEAN CORPUSCULAR HGB CONC 33.3 g/L CALC (32.0-36.0); NEUT# 2.84 thou/uL (1.82-7.42); RED BLOOD COUNT 4.75 mill/uL (4.70-6.10); RED CELL DISTRI WIDTH 13.9 % (11.5-15.5)
[2017-12-02 06:00] LABS: ANION GAP 18 (6-22 (CALC)); BUN 13 mg/dL (9-20); BUN/CREATININE RATIO 23 (12-20 (CALC)); CARBON DIOXIDE 26 mmol/l (22-30); CHLORIDE 99 mmol/l (95-108); CREATININE 0.5 mg/dL (0.7-1.3); GFR > 60 ML/MIN (>=60 (CALC)); GFR FOR AFR.AMER. > 60 ML/MIN (>=60 (CALC)); MAGNESIUM 1.5 mg/dL (1.6-2.3); POTASSIUM 3.1 mmol/l (3.5-5.1); SODIUM 140 mmol/l (137-146)
--- NOTE | 2017-12-02 07:00 | NUR ---
REPORT RECEIVED BY VALENTINA ARIZA. PT IS RESTING IN BED WITH NO S/S OF DISTRESS NOTED. PT DENIES NEEDS AT THIS TIME CALL LIGHT IN REACH.
[2017-12-02 07:29] VITALS: BP 138/86
--- NOTE | 2017-12-02 08:20 | NUR ---
MEDICATED PT WITH LORTAB FOR PAIN SEE EMAR. ASSESSMENT DONE RESPS EVEN AND UNLABOREDN. TELE IN PLACE. # 18 RAC THAT APPEARS HEALTHY. PT STATED THAT RIGHT HAND IS LESS SWOLLEN AND ELEVATED IN PILLOW. PT STATED THAT HE KEEPS HAVING NIGHTMARES AND FEELS WEAK. SAFETY PRECAUTIONS REINOFRCED AND CALL LIGHT IN REACH.
--- NOTE | 2017-12-02 10:21 | NUR ---
LIBRIUM GIVEN PER ORDER. PT IS A&O X3 , BUT STATED THAT SOMEONE IS CHASING HIM. PT STATED THAT HE KNOW HE IS IN THE HOSPITAL. PT DENIES ANY OTHER NEEDS AT THIS TIME. CALL LIGHT IN REACH.
[2017-12-02 11:15] VITALS: BP 138/85
--- NOTE | 2017-12-02 12:44 | NUR ---
MEIDCATED PT WITH LORTAB FOR PAIN SEE EMAR. RESPS EVEN AND UNLABORED AND TELE IN PLACE. PT DENIES ANY OTHER NEEDS AT THIS TIME. CALL LIGHT IN REACH.
[2017-12-02 15:20] VITALS: BP 143/88
--- NOTE | 2017-12-02 16:01 | NUR ---
PT IS RESTING IN BED . PT STATED THAT HE FEELS LESS SHAKY BUT STILL WEAK. PT DENIES NEEDS AT THIS TIME. CALL LIGHT IN REACH.
[2017-12-02 19:00] VITALS: BP 143/96
--- NOTE | 2017-12-02 20:00 | NUR ---
BEDSIDE REPORT RECEIVED FROM VALENTINA CANALES. PT RESTING IN BED SEMI FOWLERS WATCHING TV. ALERT AND ORIENTED; LAO SPEAKING. PT C/O ABDOMINAL PAIN 10. RESPIRATIONS EVEN AND UNLABORED ON ROOM AIR. ALSO C/O BEING ANXIOUS AND REQUESTS ANXIETY MEDICATION. PLAN OF CARE DISCUSSED. PT ENCOURAGED TO VERBALIZE CONCERNS. STATES UNDERSTANDING. SAFETY MEASURES IN PLACE. CALL LIGHT WITHIN REACH.
--- NOTE | 2017-12-02 22:47 | NUR ---
PT HAD LARGE EMESIS; ZOFRAN GIVEN AND PAIN MEDICATION. REQUESTING SOMETHING TO HELP HIM SLEEP, ATIVAN GIVEN LESS THAN 2 HOURS PRIOR. WILL REASSESS.
[2017-12-03] VITALS (8 sets, daily range): BP systolic 125–144; BP diastolic 72–96
--- NOTE | 2017-12-03 01:19 | NUR ---
ZOFRAN WAS EFFECTIVE FOR NAUSEA AND EMESIS. LIBRIUM ALSO GIVEN AT MIDNIGHT FOR C/O ANXIETY AND SLEEPLESSNESS. SOON AFTER LIBRIUM WAS GIVEN PT STATES THAT HE FEELS IF SOMETHING IS PUSHING HIM INTO THE MATRESS AND HE CANNOT MOVE, CAN BARELY SPEAK, AND IS HEARING NOISES COMPARED TO STATIC ON A TV. NEURO EXAM WNL FOR PT. ATIVAN ADMINISTERED. WILL CONTINUE TO MONITOR.
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
[2017-12-03 05:46] LABS: ANION GAP 13 (6-22 (CALC)); BUN 7 mg/dL (9-20); BUN/CREATININE RATIO 15 (12-20 (CALC)); CARBON DIOXIDE 26 mmol/l (22-30); CHLORIDE 98 mmol/l (95-108); CREATININE 0.5 mg/dL (0.7-1.3); GFR > 60 ML/MIN (>=60 (CALC)); GFR FOR AFR.AMER. > 60 ML/MIN (>=60 (CALC)); MAGNESIUM 1.8 mg/dL (1.6-2.3); SODIUM 134 mmol/l (137-146)
[2017-12-03 05:50] LABS: HEMATOCRIT 36.6 % (39.0-50.0); HEMOGLOBIN 12.2 g/dl (14.0-18.0); IMMATURE GRANULOCYTES 0.4 % (0.0-1.0); MEAN CORPUSCULAR HGB 27.7 pG CALC (26.0-32.0); MEAN CORPUSCULAR HGB CONC 33.3 g/L CALC (32.0-36.0); NEUT# 3.56 thou/uL (1.82-7.42); RED BLOOD COUNT 4.41 mill/uL (4.70-6.10); RED CELL DISTRI WIDTH 13.3 % (11.5-15.5)
[2017-12-03 05:53] LABS: LIPASE 1864 u/l (23-300)
--- NOTE | 2017-12-03 08:20 | NUR ---
PT IS RELAXING IN BED WITH NO DISTRESS NOTED. IV SITE IS FREE FROM REDNESS OR EDEMA. HR IS REG, PULSES ARE STRONG X4, ABD IS SOFT WITH ACTIVE BS, TELE MONITOR IN PLACE. CONTINUE TO OSBERVE AND MONITOR.
--- NOTE | 2017-12-03 12:30 | NUR ---
PT IS RELAXING IN BED WITH MO DISTRESS NOTED. IV SITE IS FREE FROM REDNESS OR EDMEA. CONTINUE TO OBSERVE AND MONITOR.
[2017-12-03 13:50] LABS: ALBUMIN 3.8 g/dL (3.2-5.0); ALKALINE PHOSPHATASE 102 u/l (38-126); BILIRUBIN, TOTAL 0.7 mg/dL (0.0-1.4); BUN 5 mg/dL (9-20); BUN/CREATININE RATIO 11 (12-20 (CALC)); CARBON DIOXIDE 25 mmol/l (22-30); CHLORIDE 99 mmol/l (95-108); CREATININE 0.5 mg/dL (0.7-1.3); GFR > 60 ML/MIN (>=60 (CALC)); GFR FOR AFR.AMER. > 60 ML/MIN (>=60 (CALC)); SGOT/AST 79 u/l (17-59); SGPT/ALT 65 u/l (21-72); SODIUM 134 mmol/l (137-146); TOTAL PROTEIN 6.6 g/dL (6.3-8.2)
[2017-12-03 13:51] LABS: ANION GAP 14 (6-22 (CALC)); POTASSIUM 4.3 mmol/l (3.5-5.1)
--- NOTE | 2017-12-03 15:59 | NUR ---
PT BEING TRANSPORTED TO HAVE CT SCAN COMPLETED
--- NOTE | 2017-12-03 16:30 | NUR ---
PT RETURNED FROM HAVING CT SCAN COMPLETED: IV SITE IS FREE FROM REDNESS OR EDMEA. CONTINUE TO OBSERVE AND MONITOR.
--- NOTE | 2017-12-03 20:00 | NUR ---
BEDSIDE REPORT RECEIVED FROM MALACHI AHN. PT RESTING IN BED SUPINE WATCHING TV; ALERT AND ORIENTED. C/O 10 LUQ PAIN. RESPIRATIONS EVEN AND UNLABORED ON ROOM AIR. REMAINS ON SEIZURE PRECAUTIONS AND NEURO CHECKS WHICH HAVE BEEN WNL FOR PT. PLAN OF CARE REIVEWED. PT ENCOURAGED TO VERALIZE CONCERNS. REQUEST A SHOWER AT THIS TIME. SAFETY MEASURES IN PLACE. CALL LIGHT WITHIN REACH.
--- NOTE | 2017-12-03 23:02 | NUR ---
PAIN AND ANXIETY MEDICATION GIVEN AT HS PER REQUEST. PT ALSO REQUESTED TO CONTACT NIVIA ZEPEDA WHO HE STATES HAS HIS PHONE, WALLET, AND HOUSE KEYS. PT SPOKE TO NIVIA VIA TELEPHONE AND WAS SATISFIED. PT DID VERBALIZE THAT HE IS WORRIED HE WILL HAVE DELUSIONS AGAIN TONIGHT; TLC GIVEN ALONG WITH ATIVAN. IV FLUIDS INFUSING WITHOUT DIFFICUTLY; IV SITE APPEARS HEALTHY. SHOWER WAS GIVEN EARLIER THIS SHIFT. TELE ON. SAFETY MEASURES IN PLACE. CALL LIGHT WITHIN REACH.
[2017-12-04 04:05] VITALS: BP 120/84
--- NOTE | 2017-12-04 04:24 | NUR ---
PT SLEEP AT THIS TIME WITH NO SIGNS OF DISTRESS; HE HAS SLEPT MOST OF THE NIGHT. RESPIRATIONS EVEN AND UNLABORED ON ROOM AIR. NO ACUTE CHANGES IN CONDITION THROUGHOUT THE NIGHT. SAFETY MEASURES IN PLACE. CALL LIGHT WITHIN REACH.
--- NOTE | 2017-12-04 07:00 | NUR ---
SHIFT CHANGE REPORT FROM HARRY RUBY AWAKE ALERT AND ORIENTED RESTING IN BED, IVF INFUSING, NO C/O DISCOMFORT AT THIS TIME, CALL BLANCAS IN REACH.
[2017-12-04 08:00] LABS: HEMATOCRIT 36.5 % (39.0-50.0); HEMOGLOBIN 12.2 g/dl (14.0-18.0); MEAN CELL VOLUME 82.8 fL CALC (80.0-100.0); MEAN CORPUSCULAR HGB 27.7 pG CALC (26.0-32.0); MEAN CORPUSCULAR HGB CONC 33.4 g/L CALC (32.0-36.0); RED BLOOD COUNT 4.41 mill/uL (4.70-6.10); RED CELL DISTRI WIDTH 13.2 % (11.5-15.5)
[2017-12-04 08:05] LABS: ALBUMIN 3.6 g/dL (3.2-5.0); ALKALINE PHOSPHATASE 91 u/l (38-126); ANION GAP 14 (6-22 (CALC)); BILIRUBIN, TOTAL 0.4 mg/dL (0.0-1.4); BUN 4 mg/dL (9-20); BUN/CREATININE RATIO 10 (12-20 (CALC)); CARBON DIOXIDE 25 mmol/l (22-30); CHLORIDE 102 mmol/l (95-108); CREATININE 0.4 mg/dL (0.7-1.3); GFR > 60 ML/MIN (>=60 (CALC)); GFR FOR AFR.AMER. > 60 ML/MIN (>=60 (CALC)); LIPASE 760 u/l (23-300); MAGNESIUM 1.8 mg/dL (1.6-2.3); POTASSIUM 3.5 mmol/l (3.5-5.1); SGOT/AST 87 u/l (17-59); SGPT/ALT 71 u/l (21-72); SODIUM 136 mmol/l (137-146); TOTAL PROTEIN 6.5 g/dL (6.3-8.2)
[2017-12-04 08:59] VITALS: BP 145/101
[2017-12-04 11:56] VITALS: BP 130/95
--- NOTE | 2017-12-04 12:00 | NUR ---
PT C/O LEFT ABD PAIN STATED IT STARTED AFTER MEAL THIS AM, CONCERN ADDRESSED, WILL CONTINUE TO MONITOR AND ADDRESS NEEDS.
[2017-12-04 15:18] VITALS: BP 136/95
--- NOTE | 2017-12-04 16:00 | NUR ---
RESTING IN BED, ALL NEEDS ADDRESSED, CALL BLANCAS IN REACH.
[2017-12-04 19:00] VITALS: BP 139/99
--- NOTE | 2017-12-04 20:00 | NUR ---
BEDSIDE REPORT RECEIVED FROM VALENTINA SIM. PT RESTING IN BED; ALERT AND OREINTED. C/O 9/10 PAIN TO LEFT SIDE/ABDOMEN. LORTAB GIVEN. RESPIRATIONS EVEN AND UNLABORED ON ROOM AIR. PLAN OF CARE REVIEWED. PT STATES THAT HE THINKS HE WILL GO HOME TOMORROW. ENCOURAGED TO VERBALIZE CONCERNS. DOES NOT APPEAR ANXIOUS AT THIS TIME. SAFETY MEASURES IN PLACE. CALL LIGHT WITHIN REACH.
[2017-12-04 23:00] VITALS: BP 141/100
--- NOTE | 2017-12-05 00:13 | NUR ---
PT ASLEEP AT THIS TIME WITH NO SIGNS OF DISTRESS. RESPIRATIONS EVEN AND UNLABORED ON ROOM AIR. ATIVAN GIVEN AT HS PER REQUEST FOR SLEEPLESSNESS AND MILD ANXIETY. PT INDEPENDENT IN ROOM; USES CALL LIGHT PRN FOR ASSISTANCE. SAFETY MEASURES IN PLACE. CALL LIGHT WITHIN REACH.
--- NOTE | 2017-12-05 04:14 | NUR ---
PT ASLEEP AT THIS TIME WITH NO SIGNS OF DISRESS. NO ACUTE CHANGES IN CONDITION THROUGHOUT THE NIGHT. SAFETY MEASURES IN PLACE. CALL LIGHT WITHIN REACH.
[2017-12-05 04:33] VITALS: BP 143/100
--- NOTE | 2017-12-05 07:25 | NUR ---
REPORT RECEIVED FROM VALENTINA RUBY;PT RESTING IN SEMI FOWLERS POSITION;INTRODUCED SELF TO PT AND POC DISCUSSED;RESPIRATIONS EVEN AND UNLABORED ON RA;SEIZURE PRECAUTIONS IN PLACE;PT DENIES ANY CURRENT PAIN OR NEEDS;ENCOURAGED TO EXPRESS NEEDS AND CONCERNS;CALL LIGHT IN REACH;WILL CONTINUE TO MONITOR
[2017-12-05 08:25] VITALS: BP 142/106
--- NOTE | 2017-12-05 08:30 | NUR ---
PT RESTING IN SEMI FOWLERS POSITION;VS OBTAINED AND ASSESSMENT COMPLETED;RESPIRATIONS EVEN AND UNLABORED ON RA,CLEAR LUNG SOUNDS;ABDOMEN SOFT ON PALPATION AND ACTIVE IN ALL 4 QUADRANTS,TENDERNESS NOTED TO RUQ;STRONG PEDAL PULSES;SKIN INTACT;PT REPORTS MINIMAL DISCOMFORTS 2/10 ON THE PAIN SCALE TO ABDOMEN;#18G TO RAC INFUSING NS @ 200ML/HR,SITE APPEARS HEALTHY;TELE MONITOR IN PLACE;SEIZURE PRECAUTIONS IN PLACE;PT DENIES ANY CURRENT NEEDS;ENCOURAGED TO CALL FOR ASSISTANCE IF NEEDED;CALL LIGHT IN REACH;WILL CONTINUE TO MONITOR
[2017-12-05 10:09] LABS: ANION GAP 15 (6-22 (CALC)); BUN 4 mg/dL (9-20); BUN/CREATININE RATIO 9 (12-20 (CALC)); CARBON DIOXIDE 26 mmol/l (22-30); CHLORIDE 101 mmol/l (95-108); CREATININE 0.5 mg/dL (0.7-1.3); GFR > 60 ML/MIN (>=60 (CALC)); GFR FOR AFR.AMER. > 60 ML/MIN (>=60 (CALC)); LIPASE 463 u/l (23-300); POTASSIUM 4.1 mmol/l (3.5-5.1); SODIUM 139 mmol/l (137-146)
[2017-12-05 11:05] VITALS: BP 150/106
--- NOTE | 2017-12-05 12:50 | NUR ---
PT COMPLAINS OF ABDOMINAL PAIN RATING 8/10 ON THE PAIN SCALE AND NAUSEA;PT MEDICATED WITH ZOFRAN 4MG IVP AND LORTAB 5/325MG PO;IV SITE PATENT INFUSING NS @ 200ML/HR;TELE MONITOR IN PLACE;600CC OF CLEAR/YELLOW UEIN EMPTIED FROM URINAL;CALL LIGHT IN REACH;WILL CONTINUE TO MONITOR
--- NOTE | 2017-12-05 13:50 | NUR ---
PT VOMITING 300CC OF UNDIGESTED FOOD AND COMPLANING OF SEVERE 10/10 ABDOMINAL PAIN; NOTIFIED
--- NOTE | 2017-12-05 14:03 | NUR ---
PT MEDICATED WITH PRN MORPHINE 2MG IVP FOR ABDOMINAL PAIN RATING 10/10 ON THE PAIN SCALE;WILL CONTINUE TO MONITOR FOR EFFECTIVENESS
--- NOTE | 2017-12-05 17:10 | NUR ---
PT MEDICATED WITH PRN ZOFRAN 4MG IVP PER REQUEST,EMESIS BAG PROVIDED;WILL CONTINUE TO MONITOR
[2017-12-05 17:53] VITALS: BP 143/100
--- NOTE | 2017-12-05 19:45 | NUR ---
PATIENT RESTING IN BED-AWAKE ALERT AND ORIENTEDX3. C/O LUQ ABD PAIN-8/10 ON PAIN SCALE-MEDICATED WITH LORTAB 5/325MG PO. MEDICATED WITH LIBRIUM 25MG FOR ANXIETY. IVF SITE TO RIGHT AC INTACT WITH NS PATENT AND INFUSING AT 200CC/HR. SITE APPEARS HEALTHY AT THIS TIME. TELE MONITORING DEVICE IN PLACE. SAFETY PRECAUTIONS REINFORCED. SEIZURE PRECAUTIONS IN PLACE WITH SIDERAILS PADDED. CALL LIGHT IN REACH. WILL CONT TO MONITOR.
[2017-12-05 20:10] VITALS: BP 113/64
[2017-12-05 23:45] VITALS: BP 143/69
--- NOTE | 2017-12-06 | NUR ---
PATIENT RESTING IN BED-APPEARS SLEEPING WITH EYES CLOSED. RESP ARE EVEN AND UNLABORED. IVF PATENT AND INFUSING VIA RIGHTAC AT 200CC/HR. VPOIDING IN URINAL CLEAR Y ELLOW URINE. SEIZURE PRECAUTIONS IN PLACE WITH PADDED SIDERAILS. NO SEIZURE ACTIVITY NOTED. CALL LIGHT IN REACH. WILL CONT TO MONITOR.
--- NOTE | 2017-12-06 03:00 | NUR ---
PATIENT RESTING IN BED-REQUESTING SOMETHING TO SLEEP-PATIENT MEDICATED WITH ATIVAN 1MG IVP ORDERED. CALL LIGHT IN REACH. WILL CONT TO MONITOR.
[2017-12-06 04:55] VITALS: BP 132/92
[2017-12-06 06:16] LABS: HEMATOCRIT 36.9 % (39.0-50.0); HEMOGLOBIN 12.5 g/dl (14.0-18.0); MEAN CELL VOLUME 82.9 fL CALC (80.0-100.0); MEAN CORPUSCULAR HGB 28.1 pG CALC (26.0-32.0); MEAN CORPUSCULAR HGB CONC 33.9 g/L CALC (32.0-36.0); RED BLOOD COUNT 4.45 mill/uL (4.70-6.10); RED CELL DISTRI WIDTH 13.5 % (11.5-15.5)
[2017-12-06 06:28] LABS: AMYLASE 61 u/l (30-110); ANION GAP 14 (6-22 (CALC)); BUN 4 mg/dL (9-20); BUN/CREATININE RATIO 9 (12-20 (CALC)); CARBON DIOXIDE 26 mmol/l (22-30); CHLORIDE 102 mmol/l (95-108); CREATININE 0.5 mg/dL (0.7-1.3); GFR > 60 ML/MIN (>=60 (CALC)); GFR FOR AFR.AMER. > 60 ML/MIN (>=60 (CALC)); LIPASE 249 u/l (23-300); MAGNESIUM 1.6 mg/dL (1.6-2.3); POTASSIUM 3.6 mmol/l (3.5-5.1); SODIUM 138 mmol/l (137-146)
--- NOTE | 2017-12-06 07:00 | NUR ---
RECEIVED BEDSIDE REPORT FROM MATEO MONTGOMERY. RESTING IN SUPINE POSITION WITH EYES CLOSED, AWAKENS EASILY. RESPS EVEN AND UNLABORED ON ROOM AIR, TELE MONITOR IN PLACE. #18 RAC INFUSING WITHOUT DIFFICULTY, SITE APPEARS HEALTHY. DENIES PAIN OR DISCOMFORT. PLAN OF CARE DISCUSSED. SAFETY PRECAUTIONS REINFORCED. BED IN LOWEST POSITION WITH WHEELS LOCKED. CALL LIGHT WITHIN REACH. ENCOURAGED PT TO CALL FOR ANY NEEDS.
[2017-12-06 07:32] VITALS: BP 130/91
[2017-12-06] MEDS ORDERED: SUCRALFATE1 GM/10 ML PO (10:16)
[2017-12-06] MEDS ORDERED: LIBRIUM25 M1 PO (10:16)
[2017-12-06] MEDS ORDERED: PROTONIX40 M2 PO (10:17)
--- NOTE | 2017-12-06 11:00 | NUR ---
DR PEREZ AT BEDSIDE, NEW ORDERS RECEIVED.
[2017-12-06 12:30] VITALS: BP 134/84
--- NOTE | 2017-12-06 12:38 | NUR ---
IV site discontinued, cath intact. No edema , no redness, voices no discomfort.
--- NOTE | 2017-12-06 12:55 | NUR ---
Discharge instructions given. Patient verbalizes understanding of same. Discharged in stable condition via Wheelchair to Home with spouse. All belongings sent with pt.
== END 2017-12-06 12:56 | disposition home or self-care (01) | DRG 439 ==
LOC: ED 16:17 → ED-I 17:25 → ED 18:01 → MS2 18:02
PROVIDERS: Family Medicine; Nurse Practitioner Family; Surgery; ADMIT Internal Medicine; ATTEND Internal Medicine
DX: K85.20 Alcohol induced acute pancreatitis without necrosis or infection (principal); F10.231 Alcohol dependence with withdrawal delirium; F10.251 Alcohol dependence with alcohol-induced psychotic disorder with hallucinations; K86.0 Alcohol-induced chronic pancreatitis; K29.20 Alcoholic gastritis without bleeding; E87.6 Hypokalemia; E83.42 Hypomagnesemia; E86.0 Dehydration; F14.10 Cocaine abuse, uncomplicated
CPT/HCPCS: J2060; Q9967; S0164

== ENCOUNTER 2018-01-06 07:16 | Inpatient (IN) | payer SELFPAY ==
[~2018-01-06] VITALS: Ht 165.1 cm; Wt 63.0 kg
[~2018-01-06 07:16] MED LIST changes: +SUCRALFATE1 GM/10 ML PO; +TYLENOL325 MG PO
[2018-01-06 07:59] LABS: BILIRUBIN, TOTAL 0.6 mg/dL (0.0-1.4); BUN 13 mg/dL (9-20); BUN/CREATININE RATIO 15 (12-20 (CALC)); CHLORIDE 105 mmol/l (95-108); CREATININE 0.9 mg/dL (0.7-1.3); GFR > 60 ML/MIN (>=60 (CALC)); GFR FOR AFR.AMER. > 60 ML/MIN (>=60 (CALC)); LIPASE 61 u/l (23-300); SGPT/ALT 206 u/l (21-72); SODIUM 143 mmol/l (137-146)
[2018-01-06 08:11] LABS: MYOGLOBIN 81 ng/mL (0 - 121)
[2018-01-06 08:15] LABS: ALBUMIN 5.1 g/dL (3.2-5.0); ALKALINE PHOSPHATASE 168 u/l (38-126); ANION GAP 37 (6-22 (CALC)); CARBON DIOXIDE 6 mmol/l (22-30); POTASSIUM 4.8 mmol/l (3.5-5.1); SGOT/AST 242 u/l (17-59); TOTAL PROTEIN 8.7 g/dL (6.3-8.2)
[2018-01-06 08:23] LABS: IMMATURE GRANULOCYTES 1.2 % (0.0-1.0); MEAN CELL VOLUME 87.2 fL CALC (80.0-100.0); MEAN CORPUSCULAR HGB 27.9 pG CALC (26.0-32.0); MEAN CORPUSCULAR HGB CONC 32.1 g/L CALC (32.0-36.0); NEUT# 7.01 thou/uL (1.82-7.42); RED BLOOD COUNT 5.37 mill/uL (4.70-6.10); RED CELL DISTRI WIDTH 14.1 % (11.5-15.5)
[2018-01-06 08:24] LABS: HEMATOCRIT 46.8 % (39.0-50.0)
[2018-01-06 14:13] VITALS: BP 143/90
[2018-01-06 15:24] VITALS: BP 149/94
[2018-01-06 19:00] VITALS: BP 143/89
[2018-01-06 22:14] LABS: BUN 9 mg/dL (9-20); BUN/CREATININE RATIO 14 (12-20 (CALC)); CHLORIDE 105 mmol/l (95-108); CREATININE 0.6 mg/dL (0.7-1.3); GFR > 60 ML/MIN (>=60 (CALC)); GFR FOR AFR.AMER. > 60 ML/MIN (>=60 (CALC))
[2018-01-06 22:16] LABS: ANION GAP 16 (6-22 (CALC)); POTASSIUM 3.3 mmol/l (3.5-5.1); SODIUM 133 mmol/l (137-146)
[2018-01-06 22:17] LABS: CARBON DIOXIDE 15 mmol/l (22-30)
[2018-01-07] VITALS (7 sets, daily range): BP systolic 128–147; BP diastolic 75–88
[2018-01-07 05:08] LABS: MEAN CELL VOLUME 84.3 fL CALC (80.0-100.0); MEAN CORPUSCULAR HGB 28.3 pG CALC (26.0-32.0); MEAN CORPUSCULAR HGB CONC 33.5 g/L CALC (32.0-36.0); RED BLOOD COUNT 4.21 mill/uL (4.70-6.10); RED CELL DISTRI WIDTH 14.1 % (11.5-15.5)
[2018-01-07 05:12] LABS: HEMATOCRIT 35.5 % (39.0-50.0); HEMOGLOBIN 11.9 g/dl (14.0-18.0)
[2018-01-07 05:20] LABS: ALKALINE PHOSPHATASE 102 u/l (38-126); AMYLASE 34 u/l (30-110); BILIRUBIN, TOTAL 1.2 mg/dL (0.0-1.4); BUN 7 mg/dL (9-20); BUN/CREATININE RATIO 13 (12-20 (CALC)); CHLORIDE 104 mmol/l (95-108); CREATININE 0.5 mg/dL (0.7-1.3); GFR > 60 ML/MIN (>=60 (CALC)); GFR FOR AFR.AMER. > 60 ML/MIN (>=60 (CALC)); LIPASE 87 u/l (23-300); POTASSIUM 3.5 mmol/l (3.5-5.1); SGOT/AST 130 u/l (17-59); SGPT/ALT 122 u/l (21-72); SODIUM 135 mmol/l (137-146)
[2018-01-07 05:25] LABS: ALBUMIN 3.5 g/dL (3.2-5.0); ANION GAP 15 (6-22 (CALC)); CARBON DIOXIDE 20 mmol/l (22-30)
[2018-01-08 03:45] VITALS: BP 118/73
[2018-01-08 05:34] LABS: BUN 3 mg/dL (9-20); BUN/CREATININE RATIO 7 (12-20 (CALC)); CHLORIDE 96 mmol/l (95-108); CREATININE 0.4 mg/dL (0.7-1.3); GFR > 60 ML/MIN (>=60 (CALC)); GFR FOR AFR.AMER. > 60 ML/MIN (>=60 (CALC)); HEMATOCRIT 35.4 % (39.0-50.0); HEMOGLOBIN 11.9 g/dl (14.0-18.0); IMMATURE GRANULOCYTES 0.3 % (0.0-1.0); MAGNESIUM 1.7 mg/dL (1.6-2.3); MEAN CELL VOLUME 81.8 fL CALC (80.0-100.0); MEAN CORPUSCULAR HGB 27.5 pG CALC (26.0-32.0); MEAN CORPUSCULAR HGB CONC 33.6 g/L CALC (32.0-36.0); NEUT# 1.96 thou/uL (1.82-7.42); RED BLOOD COUNT 4.33 mill/uL (4.70-6.10); RED CELL DISTRI WIDTH 13.4 % (11.5-15.5); SODIUM 133 mmol/l (137-146)
[2018-01-08 05:41] LABS: ANION GAP 8 (6-22 (CALC))
[2018-01-08 05:42] LABS: CARBON DIOXIDE 32 mmol/l (22-30); POTASSIUM 2.6 mmol/l (3.5-5.1)
[2018-01-08 07:39] VITALS: BP 141/96
[2018-01-08 11:12] VITALS: BP 131/87
[2018-01-08 15:40] VITALS: BP 132/87
[2018-01-08 19:00] VITALS: BP 135/86
[2018-01-08 23:56] VITALS: BP 129/90
[2018-01-09 05:07] VITALS: BP 120/80
[2018-01-09 07:35] VITALS: BP 130/89
[2018-01-09 07:45] LABS: ANION GAP 6 (6-22 (CALC)); BUN 4 mg/dL (9-20); BUN/CREATININE RATIO 11 (12-20 (CALC)); CARBON DIOXIDE 30 mmol/l (22-30); CHLORIDE 103 mmol/l (95-108); CREATININE 0.4 mg/dL (0.7-1.3); GFR > 60 ML/MIN (>=60 (CALC)); GFR FOR AFR.AMER. > 60 ML/MIN (>=60 (CALC)); LIPASE 27 u/l (23-300); MAGNESIUM 1.7 mg/dL (1.6-2.3); POTASSIUM 3.2 mmol/l (3.5-5.1); SODIUM 136 mmol/l (137-146)
[2018-01-09 10:49] VITALS: BP 124/81
[2018-01-09] MEDS ORDERED: CELEXA20 MG PO (12:37)
[2018-01-09 14:59] VITALS: BP 135/89
== END 2018-01-09 15:53 | disposition home or self-care (01) | DRG 641 ==
LOC: ED 07:16 → ED-I 11:10 → ED 11:23 → MS2 11:24
PROVIDERS: Emergency Medicine; Nurse Practitioner Family; ADMIT Internal Medicine; ATTEND Internal Medicine
DX: E87.2 Acidosis (principal); K86.0 Alcohol-induced chronic pancreatitis; F10.251 Alcohol dependence with alcohol-induced psychotic disorder with hallucinations; F10.239 Alcohol dependence with withdrawal, unspecified; F10.229 Alcohol dependence with intoxication, unspecified; E87.1 Hypo-osmolality and hyponatremia; E86.0 Dehydration; E87.6 Hypokalemia; K29.20 Alcoholic gastritis without bleeding; F32.9 Major depressive disorder, single episode, unspecified; E16.2 Hypoglycemia, unspecified
CPT/HCPCS: J2060; S0164

== ENCOUNTER 2018-09-22 05:55 | Inpatient (IN) | payer SELFPAY ==
[2018-09-22] VITALS (7 sets, daily range): BP systolic 111–121; BP diastolic 64–75
[~2018-09-22] VITALS: Ht 160 cm; Wt 66.0 kg
[~2018-09-22 05:55] MED LIST changes: +CELEXA20 MG PO
--- NOTE | 2018-09-22 06:45 | NUR ---
SITTER AT BEDSIDE. VOMITED. PT ALERT. ADMITS TO DRINKING A BOTTLE OF PERFUME AIRCRAFT ENGINE SPECIALIST.
[2018-09-22 06:47] LABS: HEMATOCRIT 40.4 % (39.0-50.0); HEMOGLOBIN 13.4 g/dl (14.0-18.0); IMMATURE GRANULOCYTES 0.3 % (0.0-5.0); MEAN CELL VOLUME 79.7 fL CALC (80.0-100.0); MEAN CORPUSCULAR HGB 26.4 pG CALC (26.0-32.0); MEAN CORPUSCULAR HGB CONC 33.2 g/L CALC (32.0-36.0); NEUT# 6.81 thou/uL (1.82-7.42); RED BLOOD COUNT 5.07 mill/uL (4.70-6.10)
--- NOTE | 2018-09-22 07:00 | NUR ---
REPORT FROM VALENTINA GEORGE. PT REPORTS LUQ ABD PAIN WITH NAUSEA. SITTER AT BEDSIDE.
[2018-09-22 07:07] LABS: ALKALINE PHOSPHATASE 121 u/l (38-126); AMYLASE 70 u/l (30-110); ANION GAP 23 (6-22 (CALC)); BILIRUBIN, TOTAL 0.9 mg/dL (0.0-1.4); BUN 13 mg/dL (9-20); BUN/CREATININE RATIO 19 (12-20 (CALC)); CARBON DIOXIDE 23 mmol/l (22-30); CHLORIDE 97 mmol/l (95-108); CREATININE 0.7 mg/dL (0.7-1.3); GFR > 60 ML/MIN (>=60 (CALC)); GFR FOR AFR.AMER. > 60 ML/MIN (>=60 (CALC)); LIPASE 27 u/l (23-300); MAGNESIUM 1.7 mg/dL (1.6-2.3); POTASSIUM 3.6 mmol/l (3.5-5.1); SGOT/AST 125 u/l (17-59); SODIUM 139 mmol/l (137-146)
[2018-09-22 07:08] LABS: ALBUMIN 4.9 g/dL (3.2-5.0); ETHYL ALCOHOL 0 mg/dl (0-30)
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
--- NOTE | 2018-09-22 08:00 | NUR ---
PT PROVIDED WITH URINAL TO OBTAIN URINE SAMPLE. PT RESTING COMFORTABLY IN STRETCHER IN NAD. SITTER REMAINS AT BEDSIDE.
--- NOTE | 2018-09-22 08:12 | NUR ---
AT BEDSIDE. PT REPORTS CONTINUED NAUSEA, HE ALSO STATES THAT HE DRANK A BOTTLE OF PERFUME LAST NIGHT AT 1999.
--- NOTE | 2018-09-22 08:18 | NUR ---
ON PHONE WITH POISON CONTROL.
[2018-09-22 08:27] LABS: URINE BILIRUBIN - DIPSTICK NEGATIVE (NEGATIVE); URINE BLOOD DIPSTICK NEGATIVE (NEGATIVE); URINE COLOR YELLOW; URINE GLUCOSE - DIPSTICK NEGATIVE (NEGATIVE); URINE KETONE >=80 mg/dL (NEGATIVE); URINE LEUK ESTERASE NEGATIVE (NEGATIVE); URINE NITRITE - DIPSTICK NEGATIVE (Negative); URINE PH 6.5 (4.5-8.0); URINE PROTEIN - DIPSTICK TRACE mg/dL (NEG-TRACE); URINE SPECIFIC GRAVITY 1.015
[2018-09-22 08:41] LABS: BARBITURATES NEGATIVE (NEGATIVE); COCAINE NEGATIVE (NEGATIVE); METHADONE NEGATIVE (NEGATIVE); OXCYCODONE NEGATIVE (NEGATIVE); TETRAHYDROCANNABIONOL NEGATIVE (NEGATIVE); TRICYLIC ANTIDEPRESSANTS NEGATIVE (NEGATIVE)
--- NOTE | 2018-09-22 09:19 | NUR ---
PT MEDICATED FOR CONTINUED NAUSEA. IV FLUIDS INFUSING WITH NO DIFFICULTY. NO REDNESS OR EDEMA NOTED. PT AWARE OF PLAN FOR ADMISSION.
--- NOTE | 2018-09-22 10:15 | NUR ---
PT RESTING IN STRETCHER WITH EYES CLOSED AND APPEARS TO BE SLEEPING. PT AWAKENS TO VERBAL STIMULI. IV FLUIDS INFUSING WITH NO DIFFICULTY. PT DENIES ANY NAUSEA AT THIS TIME. CALL BLANCAS WITHIN REACH, SITTER AT BEDSIDE.
[2018-09-22 10:31] LABS: ALKALINE PHOSPHATASE 80 u/l (38-126); ANION GAP 15 (6-22 (CALC)); BILIRUBIN, TOTAL 0.6 mg/dL (0.0-1.4); BUN 10 mg/dL (9-20); BUN/CREATININE RATIO 17 (12-20 (CALC)); CARBON DIOXIDE 23 mmol/l (22-30); CHLORIDE 105 mmol/l (95-108); CREATININE 0.6 mg/dL (0.7-1.3); GFR > 60 ML/MIN (>=60 (CALC)); GFR FOR AFR.AMER. > 60 ML/MIN (>=60 (CALC)); SGOT/AST 92 u/l (17-59); SODIUM 139 mmol/l (137-146); TOTAL PROTEIN 6.4 g/dL (6.3-8.2)
[2018-09-22 10:32] LABS: ALBUMIN 3.7 g/dL (3.2-5.0)
--- NOTE | 2018-09-22 10:49 | NUR ---
SITTER REMAINS AT BEDSIDE. PT RESTING COMFORTABLY IN STRETCHER AND DENIES ANY NEEDS AT THIS TIME. CALL BLANCAS WITHIN REACH.
--- NOTE | 2018-09-22 12:18 | NUR ---
PT REMAINS IN STRETCHER WITH HOB ELEVATED. PT APPEARS TO BE SLEEPING AND AWAKENS TO TACTILE STIMULI. VSS. WILL CONTINUE TO MONITOR.
--- NOTE | 2018-09-22 12:30 | NUR ---
bedresting. no vomiting at this time
--- NOTE | 2018-09-22 13:06 | NUR ---
PT AWAKENS TO VERBAL STIMULI AND DENIES ANY PAIN OR NAUSEA AT THIS TIME. SITTER REMAINS AT BEDSIDE. PT AWARE OF CONTINUED WAIT TIME FOR ROOM ASSIGNMENT.
--- NOTE | 2018-09-22 13:30 | NUR ---
bedresting with sitter at bedside. remains very quiet. n/c or distress noted
--- NOTE | 2018-09-22 14:06 | NUR ---
ICU NURSE KATERIN WILL CALL FOR REPORT WHEN ROOM IS CLEAN.
--- NOTE | 2018-09-22 14:16 | NUR ---
bedresting. appears to be sleeping.
--- NOTE | 2018-09-22 16:35 | NUR ---
REPORT CALLED TO VALENTINA CONKLIN
--- NOTE | 2018-09-22 16:40 | NUR ---
TO ICU VIA STRETCHER
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
--- NOTE | 2018-09-22 18:15 | NUR ---
OOB TO BSC WITH SITTER ASSIST, TOLERATES ACTIVITY WELL, FAMILY MMEBER IN TO SEE PT FOR FEW MINUTES EARLIER, ALL BELONGINGS OUT OF REACH OF PATIENT, SITTER REMAINS AT BEDSIDE
--- NOTE | 2018-09-22 20:00 | NUR ---
awake. no acute distress. electronic device monitor shows sinus rhythm. #20 rfa rl infusing @ 100cchr. remains npo. voids per urinal. fall precautions & suicide precautions cont. sitter @ bedside.
--- NOTE | 2018-09-22 22:00 | NUR ---
awake. no distress. dental insurance biller shows sinus rhythm. sitter @ bedside.
[2018-09-23] VITALS (12 sets, daily range): BP systolic 106–142; BP diastolic 58–95
--- NOTE | 2018-09-23 00:01 | NUR ---
eyes closed. no distress. sitter @ bedside.
--- NOTE | 2018-09-23 02:00 | NUR ---
resting quietly. resps even & unlabored. no apparent distress.
--- NOTE | 2018-09-23 04:00 | NUR ---
eyes closed. no distress. air sampling and monitoring shows sinus rhythm.
[2018-09-23 05:28] LABS: HEMATOCRIT 37.3 % (39.0-50.0); HEMOGLOBIN 12.1 g/dl (14.0-18.0); IMMATURE GRANULOCYTES 0.3 % (0.0-5.0); MEAN CELL VOLUME 82.3 fL CALC (80.0-100.0); MEAN CORPUSCULAR HGB 26.7 pG CALC (26.0-32.0); MEAN CORPUSCULAR HGB CONC 32.4 g/L CALC (32.0-36.0); NEUT# 2.62 thou/uL (1.82-7.42); RED BLOOD COUNT 4.53 mill/uL (4.70-6.10); RED CELL DISTRI WIDTH 12.8 % (11.5-15.5)
[2018-09-23 05:55] LABS: ALBUMIN 3.8 g/dL (3.2-5.0); ALKALINE PHOSPHATASE 81 u/l (38-126); AMYLASE 37 u/l (30-110); ANION GAP 15 (6-22 (CALC)); BILIRUBIN, TOTAL 0.8 mg/dL (0.0-1.4); BUN 6 mg/dL (9-20); BUN/CREATININE RATIO 11 (12-20 (CALC)); CARBON DIOXIDE 24 mmol/l (22-30); CHLORIDE 100 mmol/l (95-108); CREATININE 0.5 mg/dL (0.7-1.3); GFR > 60 ML/MIN (>=60 (CALC)); GFR FOR AFR.AMER. > 60 ML/MIN (>=60 (CALC)); LIPASE 16 u/l (23-300); MAGNESIUM 1.8 mg/dL (1.6-2.3); POTASSIUM 3.6 mmol/l (3.5-5.1); SGOT/AST 91 u/l (17-59); SODIUM 135 mmol/l (137-146); TOTAL PROTEIN 6.4 g/dL (6.3-8.2)
--- NOTE | 2018-09-23 06:10 | NUR ---
lab here. blood drawn.
--- NOTE | 2018-09-23 07:35 | NUR ---
PT RESTING IN BED ALERT OFFERS NO COMPLAINTS THIS AM, STATES UPPER ABD HURTS/ACHES POTETNIALLY RELATED TO SIGNIFICAMT VOMITING YESTERDAY. AM ASSESSMENT COMPLETED SEE INTERVENTIONS, LUNGS CLEAR WITH NO SOB OR DISTRESS NOTED, ABD SOFT AND BS ACTIVE 09/21/18 PER PT, MANY SMALL SUPERFICIAL SCARTCHES NOTED TO R UPPER ABD NO S/S OF INFECTION ID EDEMA NOTED, NO EDEMA, 20G IV ACCESS INTACT IN RFA WITH IVF INFUSING AT PRESCRIBED RATE, PT STATES HE STILL HEARS THE VOICES IN HIS HEAD TELLING HIM TO HURT/KILL HIMSELF/OTHERS. SITTER AT BEDSIDE, LEFT ARM HAS LIMITED USAGE/COORDINATION RELATED TO OLD INJURY AND WITH MUTIPLE SURGERIES/SKIN GRAFT TO SAID ARM. SAFETY MEASURES REINFORCED, WILL CONTINUE TO MONITOR
--- NOTE | 2018-09-23 09:30 | NUR ---
PT RESTING OFFERS NO NEW COMPLAINTS, WATCHING TELEVISION, SITTER REMAINS AT BEDSIDE
--- NOTE | 2018-09-23 10:20 | NUR ---
IN TO SEE PATIENT.
--- NOTE | 2018-09-23 11:15 | NUR ---
MEDICTAED EARLY WITH ATIVAN, AM DOSE HELD AND PT COMPLAINS OF FEELING ANXIOUS AND HEARING THE VOICES AGAIN, SITTER REMAINS AT BEDSIDE, MULTI VITAMIN BAG HUNG ORDERED, USES URINAL W/O INCIDENT, WILL CONTINUE TO MONITOR.
--- NOTE | 2018-09-23 11:42 | NUR ---
DIET ORDER PLACED AND DIETARY NOTIFIED.
--- NOTE | 2018-09-23 11:59 | NUR ---
SET P ASSIST PROVIDED FOR AFTERNOON MEAL, SITTER REMAINS AT BEDSIDE, CALL BLANCAS WITHIN REACH, WILL CONTINUE TO MONITOR.
--- NOTE | 2018-09-23 13:00 | NUR ---
PT RESTING IN BED, DOZES INTERMITTENLY OFFERS NO COMPLAINTS, COMPLIANT WIHT CARE, IVF CONTINUE, WILL CONTINUE TO MONITOR.
--- NOTE | 2018-09-23 14:00 | NUR ---
JAE CARBAJAL RN TOOK PATIENT TO MED SURG FOR SHOWER AT THIS TIME,
--- NOTE | 2018-09-23 14:34 | NUR ---
BACK FROM SHOWER TOLERATED WELL COMPLAINS OF SOME NAUSEA MEDICATED ORDERED, BRUSHING TEETH AT THIS TIME, SITTER REMAINS AT BEDSIDE
--- NOTE | 2018-09-23 16:00 | NUR ---
PT RESTING IN BED OFFERS NO COMPLAINTS, IVF INFUSING AT PRESCRIBED RATE, SITTER REMAINS AT BEDSIDE, WILL CONTINUE TO MONITOR.
--- NOTE | 2018-09-23 17:32 | NUR ---
MEDICTAED WITH LIBRIUM FOR ADMITTED HISTORY OF SIGNIFICANT DRINKING AND ATIVAN FOR COMPLAINTS OF ANXIETY AND HEARING VOICES AGAIN, SITTER REMAINS AT BEDSIDE WILL CONTINUE TO MONITOR
--- NOTE | 2018-09-23 18:19 | NUR ---
TOLERATED PM MEAL, WATCHING TELEVISION, SITTER AT BEDSIDE NO COMPLAINTS OFFERED.
--- NOTE | 2018-09-23 18:50 | NUR ---
REPORT FROM VALENTINA CONKLIN. ASSUMED PT. CARE.
--- NOTE | 2018-09-23 19:45 | NUR ---
FAMILY AT BEDSIDE AT THIS TIME. PT. REMAINS CALM. SITTER REMAINS AT BEDSIDE.
--- NOTE | 2018-09-23 19:55 | NUR ---
PT. FOUND AWAKE, ALERT, ORIENTED X 3. MAE. RAINES. DENIES COMPLAINTS OF PAIN OR NEED AT THIS TIME. PT. STATES HE IS HAVING AUDITORY HALLUCINATIONS HEARING VOICES THAT ARE TELLING HIM TO KILL HIMSELF. THIS IS HIS ONLY COMPLAINT. PT. STATES THIS HAS HAPPENED IN THE PAST AND OCCURS EACH TIME HE STOPS DRINKING. PT. STATES LAST DRINK WAS FRIDAY NIGHT AND HE WOKE UP FRIDAY MORNING WITH THE AUDITORY HALLUCINATIONS. SUPERFICIAL SCABBED ABRAIONS NOTED TO RT. UPPER ABDOMEN. RESPS EVEN AND UNLABORED. BOWEL SOUNDS PRESENT. SITTER AT BEDSIDE. FAMILY AT BEDSIDE AT THIS TIME. UPDATED ON PLAN OF CARE. WILL CONTINUE TO ASSESS.
--- NOTE | 2018-09-23 21:38 | NUR ---
PT. REQUESTING ANXIETY MEDICATION AT THIS TIME. UPDATED ON MED ADMINISTRATION TIMES AND THAT HE WOULD GET MEDICATIONS IN APPROX 1.5 HOURS. WILL CONTINUE TO MEDICATE ORDERED. PT. APPEARS STABLE. HR IN THE 80'S, NON-TREMULOUS. WILL CONTINUE TO CLOSELY MONITOR. SITTER REMAINS AT BEDSIDE.
--- NOTE | 2018-09-23 23:15 | NUR ---
PT. MEDICATED PER PHYSICIAN ORDERS. REMAINS IN NO DISTRESS. NO ANXIETY NOTED. NO TREMORS NOTED. CALL LIGHT REMAINS WITHIN REACH. SKIN REMAINS WARM AND DRY.
[2018-09-24] VITALS (7 sets, daily range): BP systolic 110–140; BP diastolic 65–93
--- NOTE | 2018-09-24 00:31 | NUR ---
PT. UP TO URINATE AT THIS TIME. REMAINS IN NO DISTRESS. IV FLUIDS CONTINUE TO INFUSE WITHOUT SX OF INFILTRATION OR EXTRAVASATION. SITTER REMAINS AT BEDSIDE AT THIS TIME. NO DISTRESS.
--- NOTE | 2018-09-24 00:33 | NUR ---
RECEIVED CALL FROM [facility] REGARDING REFERRAL, THEY STATE THEY ARE AT [facility] AT THIS TIME.
--- NOTE | 2018-09-24 02:15 | NUR ---
PT. RESTING IN BED WITH SNORING RESPIRATIONS. CALL LIGHT WITHIN REACH. SITTER REMAINS AT BEDSIDE. IV FLUIDS CONTINUE TO INFUSE. WILL CONTINUE TO MONITOR.
--- NOTE | 2018-09-24 04:35 | NUR ---
PT. CONTINUES TO REST IN BED IN NO DISTRESS. SITTER REMAINS AT BEDSIDE. VSS. LAB AT BEDSIDE TO DRAW PT. CALL LIGHT REMAINS WITHIN REACH. WILL CONTINUE TO MONITOR.
[2018-09-24 04:53] LABS: HEMATOCRIT 36.7 % (39.0-50.0); HEMOGLOBIN 12.2 g/dl (14.0-18.0); IMMATURE GRANULOCYTES 0.6 % (0.0-5.0); MEAN CELL VOLUME 81.4 fL CALC (80.0-100.0); MEAN CORPUSCULAR HGB 27.1 pG CALC (26.0-32.0); MEAN CORPUSCULAR HGB CONC 33.2 g/L CALC (32.0-36.0); NEUT# 2.48 thou/uL (1.82-7.42); RED BLOOD COUNT 4.51 mill/uL (4.70-6.10); RED CELL DISTRI WIDTH 12.8 % (11.5-15.5)
[2018-09-24 05:07] LABS: ALBUMIN 3.9 g/dL (3.2-5.0); ALKALINE PHOSPHATASE 79 u/l (38-126); AMYLASE 37 u/l (30-110); ANION GAP 12 (6-22 (CALC)); BILIRUBIN, TOTAL 0.7 mg/dL (0.0-1.4); BUN 7 mg/dL (9-20); BUN/CREATININE RATIO 11 (12-20 (CALC)); CARBON DIOXIDE 27 mmol/l (22-30); CHLORIDE 100 mmol/l (95-108); CREATININE 0.6 mg/dL (0.7-1.3); GFR > 60 ML/MIN (>=60 (CALC)); GFR FOR AFR.AMER. > 60 ML/MIN (>=60 (CALC)); LIPASE 21 u/l (23-300); MAGNESIUM 1.8 mg/dL (1.6-2.3); POTASSIUM 3.4 mmol/l (3.5-5.1); SGOT/AST 96 u/l (17-59); SODIUM 136 mmol/l (137-146); TOTAL PROTEIN 6.5 g/dL (6.3-8.2)
--- NOTE | 2018-09-24 06:26 | NUR ---
PT. MEDICATED PER PHYSICIAN ORDERS. REMAINS EASILY AROUSABLE TO LIGHT VERBAL STIMULI. SITTER REMAINS AT BEDSIDE AT THIS TIME. NO DISTRESS NOTED. PT. THANKFUL FOR CARE.
--- NOTE | 2018-09-24 07:25 | NUR ---
PT RESTING IN BED ALERT OFFERS NO COMPLAINTS THIS AM, AM ASSESSMENT COMPLETED SEE INTERVENTIONS, LUNGS CLEAR WITH NO SOB OR DISTRESS NOTED, ABD SOFT AND BS ACTIVE 09/21/18 PER PT, MANY SMALL UNCHNAGED SUPERFICIAL SCARTCHES NOTED TO R UPPER ABD NO S/S OF INFECTION WA EDEMA NOTED, NO EDEMA, 20G IV ACCESS INTACT IN RFA WITH IVF INFUSING AT PRESCRIBED RATE, PT STATES HE STILL HEARS THE VOICES IN HIS HEAD TELLING HIM TO HURT/KILL HIMSELF/OTHERS SITTER REMAINS AT BEDSIDE, LEFT ARM HAS LIMITED USAGE/COORDINATION RELATED TO OLD INJURY. PT FOLLOW S COMAMANDS AND IS COOPERATIVE WITH CARE, PT IS SOMEWHAT DROWSY THIS AM RELATED TO MEDICATIONS BUT RESPONDS EASILY TO VERBAL STIMULI. SAFETY MEASURES REINFORCED, WILL CONTINUE TO MONITOR
--- NOTE | 2018-09-24 08:17 | NUR ---
BREAKFAST AT BEDSIDE, PT REMAINS DROWSY, AROUSES EASILY TO VERBAL STIMULI, FOLLOWS COMMANDS CALL BLANCAS WITHIN REACH. WILL CONTINUE TO MONITOR.
--- NOTE | 2018-09-24 09:35 | NUR ---
PT DOZING INBED, OFFERS NO COMPLAINTS, NO S/S OF DISTRESS, SITTER REMAINS AT BEDSIDE, IVF INFUSING AT PRESCRIBED RATE, WILL CONTINUE TO MONITOR.
--- NOTE | 2018-09-24 10:22 | NUR ---
PT RESTING IN BED, OFFERS NO NEW COMPLAINTS, REMAINS DROWSY, SITTER REMAINS AT BEDSIDE FOR SAFETY, WILL CONTINUE TO MONITOR.
--- NOTE | 2018-09-24 11:36 | NUR ---
PT ASKING ABOUT D/C AND WHEN HE WILL GO TO THE OTHER PLACE, EDUCATED PT REGARDING MEDICAL CLEARANCE, ELEVATED LIVER ENZYMES, ROUNDING ON UNIT AT THIS TIME, WILL CONTINUE TO MONITOR.
--- NOTE | 2018-09-24 13:00 | NUR ---
PT RESTING DOZES FREQUENTLY, OFFERS NO NEW COMPLAINTS, CALL BLANCAS WITHIN REACH, MEDICALLY CLEARED BY AT 1150 IVF CONTINUE AT PRESCRIBED RATE. PT TOLERATED AFTERNOON MEAL W/ O INCIDENT. CALL BLANCAS WITHIN REACH, WILL CONTINUE TO MONITOR.
--- NOTE | 2018-09-24 14:10 | NUR ---
PER MATEO IN CASE MGMT, PT IS READY TOG GO SHE WILL CALL [facility] SELF AND THIS SEED PRODUCTION FIELD SUPERVISOR CONTACTED [facility] DEPT FOR TRANSPORT PAPERWORK READY. CALL INTO [facility] AT THIS TIME, IV ACCESSD REMOVED INTACT AND PT ASSISTED GETTING DRESSED BROTHER DESIREE NOTIFIED OF TRANSFER VIA TELEPHONE PER PT REQUEST.
--- NOTE | 2018-09-24 14:36 | NUR ---
PT LEFT UNIT VIA WHEELCAHIR WITH [facility] OFFICER BARRY [id number] ORIGINAL AND OTHER TRANSFER PAPERWORK WELL PT CELL PHONE AND SLIDE MACHINE TENDER SENT WITH OFFICER, PT WEARING CLOTHIGN HE ARRIVED TO [facility] [place].
== END 2018-09-24 14:36 | DRG 432 ==
LOC: ED 05:55 → ED-I 08:30 → ED 08:49 → ICU 08:50 → ED-I 08:50 → ICU 15:42
PROVIDERS: Emergency Medicine; Family Medicine; ADMIT Internal Medicine Nephrology; ATTEND Internal Medicine Nephrology
DX: K70.10 Alcoholic hepatitis without ascites (principal); K85.20 Alcohol induced acute pancreatitis without necrosis or infection; K86.0 Alcohol-induced chronic pancreatitis; F10.251 Alcohol dependence with alcohol-induced psychotic disorder with hallucinations; F10.239 Alcohol dependence with withdrawal, unspecified; F41.8 Other specified anxiety disorders; T65.892A Toxic effect of other specified substances, intentional self-harm, initial encounter; S30.811A Abrasion of abdominal wall, initial encounter; X78.1XXA Intentional self-harm by knife, initial encounter; Y92.009 Unspecified place in unspecified non-institutional (private) residence as the place of occurrence of the external cause
CPT/HCPCS: J2060; Q9967; S0164

== ENCOUNTER 2020-06-28 20:28 | Emergency (ER) | payer SELFPAY ==
[~2020-06-28] VITALS: Ht 160 cm; Wt 63.6 kg
[2020-06-28 21:12] LABS: HEMATOCRIT 36.7 % (39.0-50.0); HEMOGLOBIN 12.4 g/dl (14.0-18.0); IMMATURE GRANULOCYTES 0.4 % (0.0-5.0); MEAN CELL VOLUME 85.7 fL CALC (80.0-100.0); MEAN CORPUSCULAR HGB CONC 33.8 g/dL CAL (32.0-36.0); NEUT# 1.61 thou/uL (1.82-7.42); RED BLOOD COUNT 4.28 mill/uL (4.70-6.10); RED CELL DISTRI WIDTH 15.1 % (11.5-15.5)
[2020-06-28 21:29] LABS: ALBUMIN 4.4 g/dL (3.2-5.0); ALKALINE PHOSPHATASE 98 u/l (38-126); AMYLASE 123 u/l (30-110); ANION GAP 22 (6-22 (CALC)); BILIRUBIN, TOTAL 0.5 mg/dL (0.0-1.4); BUN 8 mg/dL (9-20); BUN/CREATININE RATIO 13 (12-20 (CALC)); CHLORIDE 103 mmol/l (95-108); CREATININE 0.6 mg/dL (0.7-1.3); ETHYL ALCOHOL 275 mg/dl (0-30); GFR > 60 ML/MIN (>=60 (CALC)); GFR FOR AFR.AMER. > 60 ML/MIN (>=60 (CALC)); LIPASE 249 u/l (23-300); POTASSIUM 3.8 mmol/l (3.5-5.1); SGOT/AST 138 u/l (17-59); SODIUM 140 mmol/l (137-146); TOTAL PROTEIN 7.3 g/dL (6.3-8.2)
[2020-06-28 21:30] LABS: CARBON DIOXIDE 19 mmol/l (22-30)
[2020-06-28 22:53] LABS: URINE BILIRUBIN - DIPSTICK NEGATIVE (NEGATIVE); URINE BLOOD DIPSTICK NEGATIVE (NEGATIVE); URINE COLOR YELLOW; URINE GLUCOSE - DIPSTICK NEGATIVE (NEGATIVE); URINE KETONE TRACE mg/dL (NEGATIVE); URINE LEUK ESTERASE NEGATIVE (NEGATIVE); URINE NITRITE - DIPSTICK NEGATIVE (Negative); URINE PH 6.5 (4.5-8.0); URINE PROTEIN - DIPSTICK NEGATIVE (NEG-TRACE)
[2020-06-28] MEDS ORDERED: OMEPRAZOLE20 MG PO (23:08)
[2020-06-28 23:21] VITALS: BP 131/84
== END 2020-06-28 23:40 | disposition home or self-care (01) | DRG 897 ==
LOC: ED 20:28
PROVIDERS: Family Medicine
DX: F10.129 Alcohol abuse with intoxication, unspecified (principal); K29.20 Alcoholic gastritis without bleeding
CPT/HCPCS: Q9967; S0164

== ENCOUNTER 2020-09-21 10:37 | Emergency (ER) | payer SELFPAY ==
[~2020-09-21] VITALS: Ht 160 cm; Wt 72.0 kg
[~2020-09-21 10:37] MED LIST changes: +OMEPRAZOLE20 MG PO
[2020-09-21] MEDS ORDERED: KEFLEX500 M1 PO (12:09)
[2020-09-21 12:25] VITALS: BP 129/89
== END 2020-09-21 12:25 | disposition home or self-care (01) | DRG 605 ==
LOC: ED 10:37
DX: S50.311A Abrasion of right elbow, initial encounter (principal); V18.0XXA Pedal cycle driver injured in noncollision transport accident in nontraffic accident, initial encounter; Y93.55 Activity, bike riding